=== PATIENT | female | born 1990 | race Caucasian/White ===

== ENCOUNTER 2023-05-01 09:26 | Emergency (ER) | payer BC, SELFPAY ==
[2023-05-01 09:41] VITALS: BP 132/81; PULSE 91; RESP 16; TEMP 37; O2SAT 100
--- NOTE | 2023-05-01 09:53 | ED.SKABFB ---
HPI - Skin/Abscess/Foreign Bdy General Chief complaint: Skin/Abscess/Foreign Body Stated complaint: jaw swelling Time Seen by Provider: 05/01/23 09:57 Source: patient and RN notes reviewed Mode of arrival: ambulatory Limitations: dementia History of Present Illness HPI narrative: 32-year-old female presents concern for redness, swelling on her right jaw. Reports she had a painful area that she picked that and is draining. Reports it has become more red, tender, larger. She denies fever, aches, chills, sweats. MD complaint: other (Redness) Related Data Allergies Allergy/AdvReac Type Severity Reaction Status Date / Time No Known Allergies Allergy Mild Verified 05/01/23 09:30 Review of Systems Review of Systems: CONSTITUTIONAL: Denies malaise, chills, sweats, or fever. EYES: Denies redness, or discharge. ENT: Denies rhinorrhea, congestion, swollen lips, swollen tongue CARDIOVASCULAR: Denies chest pain, palpitations, or edema. RESPIRATORY: Denies cough or dyspnea. GASTROINTESTINAL: Denies abdominal pain, nausea, vomiting SKIN: Reports redness, swelling, tenderness with drainage to the right jaw. Denies vesicles, bullae, numbness, pain beyond proportion MUSCULOSKELETAL: Denies joint pain or myalgia. NEUROLOGIC: Denies headache. All systems reviewed & are unremarkable except as noted in HPI and below PMFSH Past Medical History Medical History (Updated 05/01/23 @ 10:03 by Concepcion Jean NP) COVID-19 (11/01/20) 12/07/22 Diarrhea Encounter for wellness examination in adult Exposure to COVID-19 virus Hirsutism Lichen striatus Mixed hyperlipidemia Screening for STD (sexually transmitted disease) Upper respiratory disease UTI (urinary tract infection) Social History Social History (Updated 08/11/22 @ 14:06 by FIFI Mckenzie) Smoking status: Never smoker Alcohol intake: current Alcohol use details: one drink per month Substance use: current Substance use type: marijuana Other substance usage details: Once a month Lack of Transportation: No Lack of Food: Never True Current Housing: I Have Housing Concerned About Future Housing: No Difficulty Paying Gas/Electric Bills: No Difficulty Paying for Meds: No Currently Unemployed: No Education: Associate Degree Difficulty w/ Childcare or Family Care: No Comments At time of signature, agree with nursing past medical, surgical, social and family history. There is no relevant family history pertinent to the presenting complaint Exam Narrative: GENERAL: Well-appearing, well-nourished, and in no acute distress. HEAD: Normocephalic, atraumatic. EYES: PERRLA, conjunctivae clear ENT: Mucous membranes moist. NECK: Supple. No lymphadenopathy CHEST: Clear to auscultation. No respiratory distress. HEART: Regular rate and rhythm. SKIN: Warm, dry. Approximately cm by 2 cm area of erythema, induration, tenderness, warmth with sharp margins noted right jaw with a scabbed area noted, no fluctuation. No vesicles, bullae, necrosis, ecchymosis, crepitus noted. NEURO: Alert and oriented x3. PSYCH: Normal mood and affect Course Course Emergency Course: Patient is aware of diagnosis, understands and agrees to treatment plan. Anticipatory guidance given. Patient agrees to follow-up as directed and is aware of reasons to seek care at the emergency department. Portions of this record may have been created with voice recognition software Level of Care: Express Care Visit Vital Signs Vital signs: Vital Signs Temperature 98.6 F 05/01/23 09:41 Pulse Rate 91 05/01/23 09:41 Respiratory Rate 16 05/01/23 09:41 Blood Pressure 132/81 05/01/23 09:41 Pulse Oximetry 100 05/01/23 09:41 Temperature 98.6 F 05/01/23 09:41 Pulse Rate 91 05/01/23 09:41 Respiratory Rate 16 05/01/23 09:41 Blood Pressure 132/81 05/01/23 09:41 Pulse Oximetry 100 05/01/23 09:41 Reviewed. MDM - Skin/Abscess/Foreign Bdy MDM Narrativ
== END 2023-05-01 10:07 | disposition home or self-care (01) ==
PROVIDERS: Emergency Provider Nurse Practitioner; PCP Family Medicine
DX: L03.211 Cellulitis of face (principal); F12.90 Cannabis use, unspecified, uncomplicated; E78.2 Mixed hyperlipidemia; L44.2 Lichen striatus; Z86.16 Personal history of COVID-19
CPT/HCPCS: 99213; G0463

== ENCOUNTER 2024-09-01 14:49 | Emergency (ER) | payer BC, SELFPAY ==
--- NOTE | ~2024-09-01 | XR_ITS ---
EXAMINATION: XR chest 2V DATE: 09/01/2024 15:18 INDICATION: Cough and chest congestion. TECHNIQUE: Frontal and lateral views of the chest were obtained. COMPARISON: None. FINDINGS: There is no pneumonia, pleural effusion, or pneumothorax. The heart size is normal. IMPRESSION: 1. No acute cardiopulmonary disease. Reviewed, dictated and finalized at location A. RVISOR MARBLE
--- NOTE | 2024-09-01 14:58 | ED.URI ---
HPI - URI/Sore Throat General Chief Complaint: Upper Respiratory Infection Stated Complaint: cough,congestion Time Seen by Provider: 09/01/24 14:53 Source: patient Mode of arrival: ambulatory Limitations: no limitations History of Present Illness HPI Narrative: Kirti is a 33-year-old female patient presenting to the clinic today with complaints of cough and congestion x8 days. She reports she is bringing up some yellow phlegm at times otherwise is clear. Denies any known fever or chills. Does have some shortness of breath at times. Contacted her primary care doctor and they instructed her to come here for a chest x-ray. MD elicited complaint: cough and nasal congestion Related Data Allergies Allergy/AdvReac Type Severity Reaction Status Date / Time No Known Allergies Allergy Mild Verified 09/01/24 14:58 Review of Systems Review of Systems: Pertinent positives per HPI. Patient denies any fever, chills, rash, headache, visual changes, dizziness, chest pain, palpitations, nausea, vomiting, diarrhea, constipation, abdominal pain, or any urinary issues. [facility] Past Medical History Medical History COVID-19 (11/01/20) 12/07/22 Diarrhea Encounter for wellness examination in adult Exposure to COVID-19 virus Hirsutism Lichen striatus Mixed hyperlipidemia Screening for STD (sexually transmitted disease) Upper respiratory disease UTI (urinary tract infection) Family History Family History Father Hypertension Social History Social History Smoking status: Never smoker Alcohol intake: current Alcohol use details: one drink per month Substance use: current Substance use type: marijuana Other substance usage details: Once a month Lack of Transportation: No Lack of Food: Never True Current Housing: I Have Housing Concerned About Future Housing: No Difficulty Paying Gas/Electric Bills: No Difficulty Paying for Meds: No Currently Unemployed: No Education: Associate Degree Difficulty w/ Childcare or Family Care: No Living arrangements: with family Occupation/Education: occupation Gender identity (if verbalized by the patient): Female Comments At the time of my signature, I reviewed and agree with the nursing past medical, surgical, social, and family history. There is no relevant family history pertinent to the patient complaint. Exam Narrative: General: Well-developed, well nourished, in no apparent distress Head: Normocephalic, atraumatic Eyes: Pupils equally round and reactive to light bilaterally, EOM intact, sclera and conjunctive clear, no discharge, lids normal Ears: TMs intact and clear, ear canals clear, no drainage, grossly hearing normal. Nose: Nares patent, clear nasal discharge, no inflammation, no sinus tenderness. Mouth: Oral pharynx without lesions or masses, good dentition, MMM. Postnasal drip Neck: Supple, trachea midline, no enlargement of anterior or posterior cervical nodes, no thyroid masses or goiter palpable. Cardio: Regular rate and rhythm, s1 and s2 normal, no murmur appreciated. Resp: Clear to auscultation bilaterally, no rhonchi, rales, wheezing or rubs Course Course Emergency Course: Portions of this record may have been created with voice recognition software. Level of Care: Express Care Visit Vital Signs Vital signs: Vital signs reviewed MDM - URI/Sore Throat MDM Narrative Medical decision making narrative: At the time of visit patient is resting comfortably on the exam table. Patient appears to be nontoxic. Diagnostics: Chest x-ray is negative for any acute cardiopulmonary process Plan: I suspect patient has URI with cough and congestion. Prescription for albuterol inhaler and prednisone was sent to the pharmacy. Supportive measures were discussed with the patient and they voiced understanding discharge instructions and agrees to treatment plan. Return precautions reviewed Differential Diagnosis Differential diagnosis: Likely upper respiratory infection, otitis media, sinusitis, viral infection, bronchitis, influenza, pharyngitis and other (COVID, pneumonia) Imaging Data Radiologist's impression: ITS Impressions Chest X-Ray 09/01/24 15:19 IMPRESSION: 1. No acute cardiopulmonary disease. Discharge Plan Discharge Clinical Impression: Upper respiratory infection with cough and congestion Patient Disposition: Home, Self-Care Condition: Stable Instructions: Antibiotic Form, Upper Respiratory Infection (ED) Additional Instructions: Chest x-rays negative for any acute cardiopulmonary process Take prescription medications only as prescribed-prednisone and albuterol inhaler Increase fluids and stay well hydrated Tylenol/motrin for pain/fever Flonase and OTC antihistamines as directed Vicks vapor rub to open sinuses Sinus rinses for congestion Cepacol spray, cough drops, throat lozenges, warm tea with honey/lemon, gargle salt water to soothe throat BRAT diet for diarrhea Clear liquids x 24 hours then advance as tolerated for nausea/vomiting Go to the ED if you develop a worsening in your condition- high fever not controlled by Tylenol or Motrin, dehydration, weakness, lethargy, shortness of breath, or chest pain. Follow up with your PCP in 3-5 days if symptoms persist. Prescriptions: New prednisone 20 mg tablet 40 mg PO DAILY 5 Days Qty: 10 0RF albuterol sulfate 90 mcg/actuation HFA aerosol inhaler 2 puff inhalation Q4-6H PRN (Reason: shortness of breath or wheezing) 30 Days Qty: 8.5 0RF Follow-up/Referrals: Fabian Giles MD [Primary Care Provider] - Stand Alone Forms: Work/School Release IP Time of Disposition: 15:23 Quality NIHSS Nursing Documentation ED NIHSS nursing documentation: reviewed/agree
[2024-09-01 15:01] VITALS: BP 142/101; PULSE 82; RESP 16; TEMP 36.9; O2SAT 100
== END 2024-09-01 15:29 | disposition home or self-care (01) ==
PROVIDERS: Emergency Provider Nurse Practitioner Family; PCP Family Medicine
DX: J06.9 Acute upper respiratory infection, unspecified (principal); F12.90 Cannabis use, unspecified, uncomplicated; E78.2 Mixed hyperlipidemia; L68.0 Hirsutism; Z86.16 Personal history of COVID-19
CPT/HCPCS: 71046; 99213; G0463

== ENCOUNTER 2024-09-17 11:05 | Emergency (ER) | payer BC, SELFPAY ==
[2024-09-17 12:02] VITALS: BP 128/93; PULSE 75; RESP 16; TEMP 36.7; O2SAT 100
--- NOTE | 2024-09-17 12:35 | ED_ITS ---
HPI - Skin/Abscess/Foreign Bdy General Chief complaint: Skin/Abscess/Foreign Body Stated complaint: Sores Time Seen by Provider: 09/17/24 12:38 Source: patient and RN notes reviewed Mode of arrival: ambulatory Limitations: no limitations History of Present Illness HPI narrative: 33 y/o female presented for c/o painful lesions to genital area first noticed 6 days ago. At onset they were only painful when touched, but over the past few days are now passive and painful without touch. Sig other at bedside is primarily describing the lesions, as blisters that were filled with clear fluid, and now with a white sheen over them. He states she had similar lesions a few years ago, but tested negative for HSV. Reports recent viral illness about 2 weeks ago. Denies concern for other STD at this time. Scheduled with obgyn this week. Related Data Allergies Allergy/AdvReac Type Severity Reaction Status Date / Time No Known Allergies Allergy Mild Verified 09/17/24 12:12 Review of Systems Review of Systems: CONSTITUTIONAL: Denies body aches, fever, chills, or sweats. CARDIOVASCULAR: Denies chest pain, palpitations, or edema. RESPIRATORY: Denies cough or dyspnea. GASTROINTESTINAL: Denies abdominal pain, nausea, vomiting, or diarrhea. GENITOURINARY: Reports genital lesions denies dysuria, frequency, urgency, hematuria, flank pain SKIN: Denies rash, itching, or wounds. MUSCULOSKELETAL: Denies back pain or myalgia. [facility] Past Medical History Medical History COVID-19 (11/01/20) 12/07/22 Diarrhea Encounter for wellness examination in adult Exposure to COVID-19 virus Hirsutism Lichen striatus Mixed hyperlipidemia Screening for STD (sexually transmitted disease) Upper respiratory disease UTI (urinary tract infection) Family History Family History Father Hypertension Social History Social History Smoking status: Never smoker Alcohol intake: current Alcohol use details: one drink per month Substance use: current Substance use type: marijuana Other substance usage details: Once a month Lack of Transportation: No Lack of Food: Never True Current Housing: I Have Housing Concerned About Future Housing: No Difficulty Paying Gas/Electric Bills: No Difficulty Paying for Meds: No Currently Unemployed: No Education: Associate Degree Difficulty w/ Childcare or Family Care: No Living arrangements: with family Occupation/Education: occupation Gender identity (if verbalized by the patient): Female Comments At time of signature, I have reviewed and agree with nursing past medical, surgical, social and family history unless otherwise noted. Please see nursing chart for further information. There is no relevant family history pertinent to the presenting complaint Exam Narrative: GENERAL: Well-appearing and in no acute distress. ENT: Mucous membranes pink and moist. CHEST: No respiratory distress. Clear to auscultation. HEART: Regular rate and rhythm. ABDOMEN: Soft, nontender, nondistended, normal active bowel sounds. No CVA tenderness : External genitalia appears normal, right buttock lateral to rectum is 3 open lesions c/w ruptured blisters, red center, scant clear drainage. One lesion to left buttock. SKIN: Warm, dry, no rash. PSYCH: Normal affect. Course Course Emergency Course: Patient is aware of diagnosis, understands and agrees to treatment plan. Anticipatory guidance given. Patient agrees to follow-up as directed and is aware of reasons to seek care at the emergency department. Portions of this record may have been created with voice recognition software Level of Care: Express Care Visit Vital Signs Vital signs: Vital Signs Temperature 98.1 F 09/17/24 12:02 Pulse Rate 75 09/17/24 12:02 Respiratory Rate 16 09/17/24 12:02 Blood Pressure 128/93 H 09/17/24 12:02 Pulse Oximetry 100 09/17/24 12:02 Temperature 98.1 F 09/17/24 12:02 Pulse Rate 75 09/17/24 12:02 Respiratory Rate 16 09/17/24 12:02 Blood Pressure 128/93 H 09/17/24 12:02 Pulse Oximetry 100 09/17/24 12:02 Reviewed MDM - Skin/Abscess/Foreign Bdy MDM Narrative Medical decision making narrative: Discussed physical exam findings, will send viral culture for HSV, Rx valacyclovir sent. Advised supportive measures and signs/symptoms to go to the ER. Pt is appropriate for outpt treatment and f/u. Differential Diagnosis Differential diagnosis: Likely cellulitis, impetigo, contact dermatitis and other (HSV, folliculitis) Lab Data Labs: Lab Results 09/17/24 Range/Units 12:40 CMV Rapid Culture Pending HSV & VZV Rapid Cultur Pending Viral Source Pending Virus Culture Pending Discharge Plan Discharge Clinical Impression: Female genital lesion Patient Disposition: Home, Self-Care Condition: Stable Instructions: Antibiotic Form, Genital Herpes Infection (ED), Folliculitis (ED) Additional Instructions: The swab will be sent to check for HSV infections, and you will be notified when we get results. The results may take up to 14 days to return. You can start the medication as directed. Genital herpes is caused by the herpes simplex virus (HSV), which is a lifelong infection.?There's no cure, but treatments can help relieve symptoms and shorten outbreaks.?You can also take steps to reduce the risk of future outbreaks, such as: * Taking antiviral medicine daily * Getting enough sleep * Eating healthy foods * Keeping stress low * Protecting yourself from the sun, wind, and extreme cold and heat? To reduce pain during an outbreak, you can: * Sit in warm water for about 20 minutes * Keep your genital area clean and dry * Avoid tight clothes * Take [id number] medications, such as acetaminophen or ibuprofen? Follow up with your primary care provider/ obgyn as needed in 1 week Go to the ER for worsening symptoms or concerns Prescriptions: New valacyclovir [Valtrex] 1 gram tablet 1,000 mg PO Q8H 7 Days Qty: 21 0RF Follow-up/Referrals: Fabian Giles MD [Primary Care Provider] - Time of Disposition: 12:53
[2024-09-29 08:32] LABS: Viral Culture Source URINE
== END 2024-09-17 12:55 | disposition home or self-care (01) ==
PROVIDERS: Emergency Provider Nurse Practitioner Family; PCP Family Medicine
DX: N89.8 Other specified noninflammatory disorders of vagina (principal); E78.2 Mixed hyperlipidemia; Z86.16 Personal history of COVID-19; F12.90 Cannabis use, unspecified, uncomplicated
CPT/HCPCS: 87252; 99213; G0463

== ENCOUNTER 2025-01-30 08:03 | Emergency (ER) | payer BC, SELFPAY ==
[2025-01-30 08:12] VITALS: BP 118/89; PULSE 73; RESP 18; TEMP 37.1; O2SAT 100
--- NOTE | 2025-01-30 08:31 | ED_ITS ---
HPI - General Adult General Chief complaint: Skin/Abscess/Foreign Body Stated complaint: Rash Source: patient Mode of arrival: ambulatory Limitations: no limitations History of Present Illness HPI narrative: Pt presents for evaluation of skin condition. She noted red spots with scaling to her chest, waist, under the breasts bilaterally and in bilateral axillary regions. Symptom onset five days ago. No new lotions, soaps, detergents, topical products. No history of similar symptoms. Denies any infectious symptoms. She applied neosporin without improvement. Related Data Allergies Allergy/AdvReac Type Severity Reaction Status Date / Time No Known Allergies Allergy Mild Verified 01/30/25 08:28 Review of Systems Review of Systems: CONSTITUTIONAL: Denies fever, chills, or sweats. EYES: Denies visual changes, redness, or discharge. ENT: Denies rhinorrhea, congestion, sore throat, or otalgia. CARDIOVASCULAR: Denies chest pain, palpitations, or edema. RESPIRATORY: Denies cough or dyspnea. GASTROINTESTINAL: Denies abdominal pain, nausea, vomiting, or diarrhea. GENITOURINARY: Denies dysuria or hematuria. SKIN: reports erythematous and scaling lesions to her waist, chest and bilateral axillary regionsssss MUSCULOSKELETAL: Denies back pain, joint pain, or myalgia. NEUROLOGIC: Denies headache, numbness, dizziness, or weakness. PSYCHIATRIC: Denies anxiety or depression. [facility] Past Medical History Medical History Screening for STD (sexually transmitted disease) Lichen striatus COVID-19 (11/01/20) 12/07/22 Exposure to COVID-19 virus Diarrhea Hirsutism Encounter for wellness examination in adult Mixed hyperlipidemia Upper respiratory disease UTI (urinary tract infection) Surgical History Surgical History No pertinent past surgical history Family History Family History Father Hypertension Social History Social History Smoking status: Never smoker Alcohol intake: current Alcohol use details: one drink per month Substance use: current Substance use type: marijuana Other substance usage details: Once a month Lack of Transportation: No Lack of Food: Never True Current Housing: I Have Housing Concerned About Future Housing: No Difficulty Paying Gas/Electric Bills: No Difficulty Paying for Meds: No Currently Unemployed: No Education: Associate Degree Difficulty w/ Childcare or Family Care: No Living arrangements: with family Occupation/Education: occupation Gender identity (if verbalized by the patient): Female Exam Narrative: GENERAL: Well-appearing, well-nourished, and in no acute distress. HEAD: Normocephalic, atraumatic. EYES: PERRLA and EOMI. ENT: Nares clear, no rhinorrhea or epistaxis. Mucous membranes moist. Oropharynx without tonsillar hypertrophy exudate or other lesions. Bilateral TMs pearly esparza nonbulging NECK: Supple. No adenopathy or masses. No carotid bruits or JVD CHEST: Clear to auscultation. No respiratory distress. No wheezes rales or rhonchi HEART: Regular rate and rhythm. No murmur heard. Normal peripheral pulses. ABDOMEN: Soft, nontender, nondistended, normal active bowel sounds. EXTREMITIES: Normal range of motion. No edema. SKIN: there are multiple erythematous scaling lesions to the chest, anterior waist and bilateral axillary region NEURO: No focal deficits. Alert and oriented x3. PSYCH: Normal mood and affect. Course Course Emergency Course: this is a 34-year-old female who presented for evaluation of pruritic erythematous skin lesions to the chest, bilateral axillary regions and wheeze. Exam is consistent with tinea corporis. Will start ketoconazole. Follow-up with primary provider. Go to the ER for worsening symptoms. Patient in agreement with plan of care. Level of Care: Express Care Visit Vital Signs Vital signs: Vital Signs Temperature 37.1 C 01/30/25 08:12 Pulse Rate 73 01/30/25 08:12 Respiratory Rate 18 01/30/25 08:12 Blood Pressure 118/89 01/30/25 08:12 Pulse Oximetry 100 01/30/25 08:12 Temperature 37.1 C 01/30/25 08:12 Pulse Rate 73 01/30/25 08:12 Respiratory Rate 18 01/30/25 08:12 Blood Pressure 118/89 01/30/25 08:12 Pulse Oximetry 100 01/30/25 08:12 Medical Decision Making Vital Signs Vital Signs: Vital Signs Temperature 37.1 C 01/30/25 08:12 Pulse Rate 73 01/30/25 08:12 Respiratory Rate 18 01/30/25 08:12 Blood Pressure 118/89 01/30/25 08:12 Pulse Oximetry 100 01/30/25 08:12 Temperature 37.1 C 01/30/25 08:12 Pulse Rate 73 01/30/25 08:12 Respiratory Rate 18 01/30/25 08:12 Blood Pressure 118/89 01/30/25 08:12 Pulse Oximetry 100 01/30/25 08:12 Discharge Plan Discharge Clinical Impression: Tinea corporis Patient Disposition: Home Condition: Stable Instructions: Antibiotic Form, Tinea Corporis (ED) Patient Language: [place] Prescriptions: New ketoconazole 2 % cream 1 applic topical BID Qty: 60 0RF No Action valacyclovir [Valtrex] 1 gram tablet 1,000 mg PO Q8H 7 Days Qty: 21 0RF Follow-up/Referrals: Avelino Thrasher MD [Physician] - Time of Disposition: 08:27
== END 2025-01-30 08:29 | disposition home or self-care (01) ==
PROVIDERS: Emergency Provider Nurse Practitioner
DX: B35.4 Tinea corporis (principal); E78.2 Mixed hyperlipidemia; L68.0 Hirsutism; Z86.16 Personal history of COVID-19
CPT/HCPCS: 99213; G0463